=== PATIENT | male | born 1975 | race Hispanic/Latino ===

== ENCOUNTER 2024-08-14 09:53 | Emergency (ER) | payer OTHER, SELFPAY ==
[2024-08-14 09:55] VITALS: BP 143/90
[2024-08-14 10:04] VITALS: BMI 29.9
[2024-08-14] MEDS: MORPHINE SULFATE 4 MG IV (10:29)
[2024-08-14] MEDS: ZOFRAN 4 MG IV (10:29)
[2024-08-14] MEDS: NSS 1000 IV (10:31)
[2024-08-14 10:36] VITALS: BP 121/89
[2024-08-14 11:00] VITALS: BP 129/80
[2024-08-14 11:02] LABS: % Basophils 0.8 % (0-2); % Eosinophils 1.7 % (0-6); % Immature Granulocytes 0.4 % (0-0.5); % Lymphocytes 30.8 % (20.5-51.1); % Monocytes 7.7 % (1.7-9.3); % Neutrophils 58.6 % (42.2-75.2); Absolute Eosinophils 0.1 10^3/uL (0-0.7); Absolute Lymphocytes 1.6 10^3/uL (1.2-3.4); Absolute Monocytes 0.4 10^3/uL (0.1-0.6); Absolute Neutrophils 3.1 10^3/uL (1.4-6.5); Hematocrit 41.6 % (39.0-52.0); Hemoglobin 14.3 g/dL (13.0-18.0); Mean Corp Hgb Conc. 34.4 g/dL (33.0-37.0); Mean Corpuscular Hgb 29.4 pg (27.0-31.0); Mean Corpuscular Volume 85.6 fL (80.0-94.0); Mean Platelet Volume 11.9 fL (7.4-10.4); Nucleated Red Blood Cells % 0 % (-); Platelet Count 181 10^3/uL (130-400); Red Blood Cell Count 4.86 10^6/uL (4.70-6.10); Red Cell Dist. Width 13.1 % (11.5-14.5); White Blood Cell Count 5.3 10^3/uL (4.8-10.8)
[2024-08-14 11:04] LABS: ALT (SGPT) 18 U/L (0-50); AST (SGOT) 25 U/L (17-59); Alkaline Phosphatase 64 U/L (38-126); Blood Urea Nitrogen 10 mg/dl (9-20); Carbon Dioxide 21 mmol/L (22-30); Chloride 112 mmol/L (98-107); Estimated Creatinine Clearance 99 ml/min; Glucose 137 mg/dl (70-99); Lipase 78 U/L (23-300); Potassium 4.1 mmol/L (3.5-5.1); Sodium 146 mmol/L (135-145); Total Bilirubin 0.9 mg/dl (0.2-1.3); Total Protein 8.8 g/dl (6.3-8.2); eGFR > 60.00
--- NOTE | 2024-08-14 12:22 | ED.GENMED ---
History of Present Illness
General
Chief Complaint: Flank Pain
Time Seen by Provider: 08/14/24 10:00
History of Present Illness
History of Present Illness:
49-year-old male with history of a kidney stones presenting to the emergency department for left flank pain. Patient reports symptoms started acutely about 2 hours prior to arrival and feels consistent with prior kidney stones. Notes associated
nausea and vomiting. Reports that he has had several kidney stones in the past, all of which have passed on their own. Notes that 2 days ago he did have hematuria which has since resolved. Denies fever. Primarily reporting flank pain, denies
significant abdominal pain. Denies any abdominal surgeries in the past. Denies chest pain or difficulty breathing. Denies additional acute medical complaints
Phy Exam
Physical Exam
Physical Exam:
General: Well-appearing, no clinical signs of dehydration, nontoxic and in no acute distress
HEENT: protecting airway
Neck: appears supple
CV: Normal heart rate, regular rhythm
Resp: No accessory muscle use, no increased work of breathing, lungs clear to auscultation bilaterally
Abd: Soft and non-distended, no tenderness to palpation. Left CVA tenderness
Extremities: No deformities, no swelling
Neuro: alert, no focal neurologic deficit
: deferred
Rectal: deferred
Psych: Normal affect
Skin: Intact
Course
Orders/Labs/Results
Orders:
Orders
08/14/24 10:20
0.9% Sodium Chloride 1000 ml [Nss] 1,000 ml IV BOLUS
Morphine Sulfate 4 mg IV NOW STA
Ondansetron Injectable [Zofran] 4 mg IV NOW STA
08/14/24 10:21
CT Abd/pel Without Iv Or Oral Urgent
Comment:
Reason For Exam: L-flank pain, suspected stone
08/14/24 10:33
Complete Blood Count/With Diff Urgent
08/14/24 10:34
Comprehensive Metabolic Panel Urgent
Lipase Urgent
08/14/24 13:06
Urinalysis Reflex To Culture Urgent
Date Specimen was Collected: 08/14/24
Time Specimen was Collected: 12:59
Urine Microscopic Reflex Cult Urgent
08/14/24 13:07
Oxycodone/Acetaminophen [Percocet 5/325] 1 tablet PO NOW STA
Abnormal Lab Results
08/14/24 08/14/24 08/14/24
10:33 10:34 13:06
MPV 11.9 H fL
(7.4-10.4)
Sodium 146 H mmol/L
(135-145)
Chloride 112 H mmol/L
(98-107)
Carbon Dioxide 21 L mmol/L
(22-30)
Glucose 137 H mg/dl
(70-99)
Total Protein 8.8 H g/dl
(6.3-8.2)
Urine Ketones 2+ A
(Negative)
Ur Occult Blood Reflex 4+ A
(Negative)
Urine Albumin (Reflex) 2+ A
(Neg - Trace)
08/14/24 10:33
08/14/24 10:34
Vital Signs
Initial and Last Documented VS:
Initial Vital Signs
Temp Pulse Resp BP Pulse Ox
97.8 F 65 18 143/90 97
08/14/24 09:55 08/14/24 09:55 08/14/24 09:55 08/14/24 09:55 08/14/24 09:55
Last Documented Vital Signs
Temp Pulse Resp BP Pulse Ox
97.8 F 60 18 124/93 95
08/14/24 09:55 08/14/24 13:15 08/14/24 09:55 08/14/24 13:15 08/14/24 13:15
MDM/Problems Addressed
MDM/Problems Addressed:
49-year-old male presenting to the emergency department for left flank pain with nausea and vomiting. Vital signs on arrival are normal.
On exam patient is resting comfortably, no acute distress however does appear uncomfortable secondary to pain. Symptom presentation and physical exam appears most consistent with kidney stone. Lower suspicion for infected stone given absence of
fever, nontoxic appearance. No significant tenderness in the abdomen without concern for additional serious intra-abdominal process or infection. Will obtain laboratory analysis, urinalysis, CT imaging to evaluate size of stone. Patient
administered Zofran, morphine, saline.
13:45 -patient CT is consistent with a 3 mm stone. Patient is having improvement in his pain. Urine without any sign of infection. No leukocytosis. Without present concern for infected stone. Feel stable for discharge with outpatient pain
control and supportive therapy. Will start on Flomax. Plan for outpatient urology follow-up. Return precautions discussed and patient verbalized understanding
*Critical Care Note
Total Time (30-74mins, 75-104mins- exclusive of procedures): Not Applicable
ED Attending Note
-
Portions of this chart may have been created with voice recognition software.� Occasional wrong word or��sound alike� substitutions may have occurred due to the inherent limitations of voice recognition software.
Discharge Plan
Departure
Referrals:
NONE,* [Family Provider, Internal Medicine]
Interventions
Interventions:
*Risk Screen - Suicide Last Done: 08/14/24 09:55
*General Assessment Last Done: 08/14/24 09:55
*Neglect/Abuse Screening Last Done: 08/14/24 09:55
OO-Dcqrpg-Sisdvpgycy Assessment Last Done: 08/14/24 10:11
ED-Male Genitourinary Assessment Last Done: 08/14/24 10:11
Discharge Date and Time
Print Language: FAROESE
[2024-08-14] MEDS: PERCOCET 5/325 1 TABLET PO (13:13)
[2024-08-14 13:15] VITALS: BP 124/93
[2024-08-14 13:23] LABS: Urine Albumin 2+ (Neg - Trace); Urine Bilirubin Negative (Negative); Urine Character Clear (Clear); Urine Color Yellow; Urine Glucose Negative (Negative); Urine Ketone 2+ (Negative); Urine Leukocyte Negative (Negative); Urine Nitrite Negative (Negative); Urine Occult Blood 4+ (Negative); Urine Urobilinogen Negative (Neg - 1+)
[2024-08-14] MEDS: FLOMAX 0.4 MG PO (13:58)
[2024-08-14 14:00] LABS: Urine Mucus Many; Urine Urothelial Cell 0-2 /LPF (FEW)
[2024-08-14 14:01] LABS: Urine Amorphous Seen
[2024-08-14 14:11] VITALS: BP 114/82
[2024-08-14 14:11] LABS: Urine Red Blood Cell 80-90 /HPF (0-2)
[2024-08-14 14:12] LABS: Urine White Cell 0-2 /HPF (0-5)
== END 2024-08-14 14:36 | disposition home or self-care (01) ==
LOC: EMR 09:53
PROVIDERS: EMERGENCY PHYSICIAN Student in an Organized Health Care Education/Training Program
DX: R11.2 Nausea with vomiting, unspecified (principal)
CPT/HCPCS: 99284; 96374; 96375; 96361; 74176; 80053; 81003; 81015; 83690; 85025